=== PATIENT | female | born 1990 | race Caucasian/White ===

== ENCOUNTER 2018-01-26 18:31 | Outpatient (CLI) | END 2018-01-26 22:35 | disposition left against medical advice (07) ==

== ENCOUNTER 2018-01-28 20:23 | Outpatient (CLI) | END 2018-01-29 00:19 | disposition home or self-care (01) ==

== ENCOUNTER 2018-01-31 14:25 | Outpatient (CLI) | END 2018-01-31 16:40 | disposition home or self-care (01) ==

== ENCOUNTER 2018-02-07 15:45 | Inpatient (IN) | END 2018-02-10 14:05 | disposition home or self-care (01) | DRG 775 ==